=== PATIENT | male | born 1995 | race Caucasian/White ===

== ENCOUNTER 2020-10-13 07:28 | Emergency (ER) | payer OTHER ==
[2020-10-13 07:31] VITALS: BP 124/87; PULSE 103; RESP 18; TEMP 97.5
--- NOTE | 2020-10-13 07:40 | ED ---
General Adult HPI - General Chief complaint: Skin/Abscess/Foreign Body Stated complaint: boil on face Time Seen by Provider: 10/13/20 07:33 Source: patient, RN notes reviewed Mode of arrival: ambulatory Limitations: no limitations - History of Present Illness Initial comments: This a 25-year-old male presents emergency from chief complaint of abscess on his face. Patient states started 5-6 days ago he states that he shaved injury after he states he is at work and fell he has some fiberglass in the skin. Patient denies any history of any skin infections. Patient has appears or chills. Patient states is more swelling today and was over the last for 5 days. - Related Data Previous Rx's Medication Instructions Recorded Cephalexin [Keflex] 500 mg PO Q6HR #40 cap 10/13/20 Sulfamethox-Tmp 800-160Mg [Bactrim 1 each PO Q12HR #20 tab 10/13/20 Ds] Allergies Allergy/AdvReac Type Severity Reaction Status Date / Time No Known Allergies Allergy Verified 10/13/20 07:31 Review of Systems ROS Statement: Those systems with pertinent positive or pertinent negative responses have been documented in the HPI. ROS Other: All systems not noted in ROS Statement are negative. Past Medical History Past Medical History: No Reported History History of Any Multi-Drug Resistant Organisms: None Reported Additional Past Surgical History / Comment(s): left axillae lymph node removal Past Psychological History: No Psychological Hx Reported Smoking Status: Current every day smoker Past Alcohol Use History: Occasional Past Drug Use History: Marijuana, Methamphetamine General Exam Limitations: no limitations General appearance: alert, in no apparent distress Head exam: Present: atraumatic, normocephalic, normal inspection Eye exam: Present: normal appearance, PERRL, EOMI. Absent: scleral icterus, conjunctival injection, periorbital swelling ENT exam: Present: normal oropharynx, mucous membranes moist, TM's normal bilaterally, normal external ear exam, other (Upper right-sided lip there is no firm nonfluctuant a 1 cm abscess mild erythema skin changes) Neck exam: Present: normal inspection, full ROM. Absent: tenderness, meningismus, lymphadenopathy Respiratory exam: Present: normal lung sounds bilaterally. Absent: respiratory distress, wheezes, rales, rhonchi, stridor Cardiovascular Exam: Present: regular rate, normal rhythm, normal heart sounds. Absent: systolic murmur, diastolic murmur, rubs, gallop, clicks Course Vital Signs 10/13/20 07:29 Temperature 97.5 F L Pulse Rate 103 H Respiratory 18 Rate Blood Pressure 124/87 O2 Sat by Pulse 100 Oximetry Medical Decision Making - Medical Decision Making Patient has infected hair follicle versus early abscess patient placed on oral antibiotics warm compresses return parameters were discussed. Disposition Clinical Impression: Facial abscess Disposition: HOME SELF-CARE Condition: Stable Instructions (If sedation given, give patient instructions): Abscess (ED) Additional Instructions: Please return to the Emergency Department if symptoms worsen or any other concerns. Prescriptions: Sulfamethox-Tmp 800-160Mg [Bactrim Ds] 1 each PO Q12HR #20 tab Cephalexin [Keflex] 500 mg PO Q6HR #40 cap Is patient prescribed a controlled substance at d/c from ED?: No Referrals: Param Del Rosario DO [Primary Care Provider] - 1-2 days Time of Disposition: 07:40
== END 2020-10-13 07:50 | disposition home or self-care (01) ==
LOC: EC 07:28
DX: L02.01 Cutaneous abscess of face (principal); F17.200 Nicotine dependence, unspecified, uncomplicated
CPT/HCPCS: 99282

== ENCOUNTER 2022-07-01 10:27 | Emergency (ER) | payer BC, OTHER ==
[2022-07-01 10:33] VITALS: BP 136/81; PULSE 92; RESP 20; TEMP 98
--- NOTE | 2022-07-01 11:12 | ED ---
General Adult HPI - General Chief complaint: Abdominal Pain Stated complaint: Abd Pain Time Seen by Provider: 07/01/22 10:50 Source: patient, RN notes reviewed Mode of arrival: ambulatory Limitations: no limitations - History of Present Illness Initial comments: Patient is a pleasant 26-year-old male presenting to the emergency department with concern with abdominal problems. Symptoms have been present for several weeks. Patient has had some mucus and does question if there could be possibly worms. No nausea or vomiting. Patient does have some abdominal cramping and loose stools. Patient does have some mild abdominal discomfort, lower abdomen. No history of chronic similar symptoms previously. No fever. - Related Data Previous Rx's Medication Instructions Recorded Cephalexin [Keflex] 500 mg PO Q6HR #40 cap 10/13/20 Sulfamethox-Tmp 800-160Mg [Bactrim 1 each PO Q12HR #20 tab 10/13/20 Ds] Dicyclomine [Bentyl] 20 mg PO QID PRN #15 tablet 07/01/22 Allergies Allergy/AdvReac Type Severity Reaction Status Date / Time No Known Allergies Allergy Verified 07/01/22 10:33 Review of Systems ROS Statement: Those systems with pertinent positive or pertinent negative responses have been documented in the HPI. ROS Other: All systems not noted in ROS Statement are negative. Constitutional: Denies: fever Eyes: Denies: eye pain ENT: Denies: ear pain Respiratory: Denies: cough Cardiovascular: Denies: chest pain Endocrine: Denies: fatigue Gastrointestinal: Reports: as per HPI Genitourinary: Denies: dysuria Musculoskeletal: Denies: back pain Skin: Denies: rash Neurological: Denies: weakness Past Medical History Past Medical History: No Reported History History of Any Multi-Drug Resistant Organisms: None Reported Additional Past Surgical History / Comment(s): left axillae lymph node removal Past Psychological History: No Psychological Hx Reported Smoking Status: Current every day smoker Past Alcohol Use History: Occasional Past Drug Use History: Marijuana, Methamphetamine General Exam Limitations: no limitations General appearance: alert, in no apparent distress Head exam: Present: normocephalic Eye exam: Present: normal appearance Neck exam: Present: normal inspection Respiratory exam: Present: normal lung sounds bilaterally Cardiovascular Exam: Present: regular rate, normal rhythm Expanded Peripheral pulses: 2+: Posterior Tibialis (R), Posterior Tibialis (L) GI/Abdominal exam: Present: soft, tenderness (Mild tenderness just under the umbilicus), normal bowel sounds. Absent: distended, guarding, rebound, rigid, pulsatile mass Extremities exam: Present: normal inspection Neurological exam: Present: alert Psychiatric exam: Present: normal affect, normal mood Skin exam: Present: normal color Course Vital Signs 07/01/22 10:31 Temperature 98 F Pulse Rate 92 Respiratory 20 Rate Blood Pressure 136/81 O2 Sat by Pulse 99 Oximetry Medical Decision Making - Medical Decision Making Was pt. sent in by a medical professional or institution (, PA, GIS ANALYST DEVELOPER, urgent care, hospital, or alf...) When possible be specific @ -No Did you speak to anyone other than the patient for history (EMS, parent, family, police, friend...)? What history was obtained from this source @ -No Did you review nursing and triage notes (agree or disagree)? Why? @ -I reviewed and agree with nursing and triage notes Were old charts reviewed (outside hosp., previous admission, EMS record, old EKG, old radiological studies, urgent care reports/EKG's, alf records)? Report findings @ -No old charts were reviewed Differential Diagnosis (chest pain, altered mental status, abdominal pain women, abdominal pain men, vaginal bleeding, weakness, fever, dyspnea, syncope, headache, dizziness, GI bleed, back pain, seizure, CVA, palpatations, mental health)? @ -Differential Abdominal Pain Men: Appendicitis, cholecystitis, diverticulosis, ischemic bowel, pancreatitis, hepatitis, UTI, gastroenteritis, AAA, incarcerated hernia, bowel obstruction, constipation, inflammatory bowel, hepatitis, peptic ulcer disease, splenic infarction, perforated viscus, testicular torsion, this is not meant to be an all-inclusive list EKG interpreted by me (3pts min.). @ -As above X-rays interpreted by me (1pt min.). @ -None done CT interpreted by me (1pt min.). @ -None done U/S interpreted by me (1pt. min.). @ -None done What testing was considered but not performed or refused? (CT, X-rays, U/S, labs)? Why? @ -Consider further testing including stool studies, blood work and imaging. Patient refuses this and does not feel is necessary. Patient is receptive to prescription for stool studies as he cannot provide a sample at this time. Patient does have follow-up appointment pauline scheduled with his primary care physician however this is a couple of weeks away yet. Patient is advised to make sure to have his primary care physician follow-up with stool studies. What meds were considered but not given or refused? Why? @ -None Did you discuss the management of the patient with other professionals (prof perdue i.e. , PA, GIS ANALYST DEVELOPER, lab, RT, psych nurse, executive secretary social welfare, testing and regulating technician, teacher, protection officer, medical case worker)? Give summary @ -No Was smoking cessation discussed for >3mins.? @ -No Was critical care preformed (if so, how long)? @ -No Were there social determinants of health that impacted care today? How? (Homelessness, low income, unemployed, alcoholism, drug addiction, transportation, low edu. Level, literacy, decrease access to med. care, [facility], rehab)? @ -No Was there de-escalation of care discussed even if they declined (Discuss DNR or withdrawal of care, Hospice)? DNR status @ -No What co-morbidities impacted this encounter? (DM, HTN, Smoking, COPD, CAD, Cancer, CVA, ARF, Chemo, Hep., AIDS, mental health diagnosis, sleep apnea, morbid obesity)? @ -None Was patient admitted / discharged? Hospital course, mention meds given and route, prescriptions, significant lab abnormalities, going to OR and other pertinent info. @ -Patient does not want further testing and emergency department. Patient will receive prescription for stool studies and Bentyl as needed. Patient advised to return for worsening symptoms. Patient is agreeable to follow-up in his eyes close follow-up. Undiagnosed new problem with uncertain prognosis? @ -No Drug Therapy requiring intensive monitoring for toxicity (Heparin, Nitro, Insulin, Cardizem)? @ -No Were any procedures done? @ -No Diagnosis/symptom? @ -Abdominal pain Acute, or Chronic, or Acute on Chronic? @ -Acute Uncomplicated (without systemic symptoms) or Complicated (systemic symptoms)? @ -default Side effects of treatment? @ -No Exacerbation, Progression, or Severe Exacerbation? @ -No Poses a threat to life or bodily function? How? (Chest pain, [place], [place], pneumonia, PE, COPD, DKA, ARF, appy, cholecystitis, CVA, Diverticulitis, Homicidal, Suicidal, threat to staff... and all critical care pts) @ -No Disposition Clinical Impression: Abdominal pain Disposition: HOME SELF-CARE Condition: Stable Instructions (If sedation given, give patient instructions): Abdominal Pain (ED) Additional Instructions: Prescription for stool studies provided, please return this in sample container provided to the lab. Please do have your primary care physician follow-up with stool studies. Please do follow-up through primary care physician in the next day or 2 for recheck. Return for fever, increased pain, diarrhea, worsening or changing symptoms or any other concerns. Prescription for medication has been sent to your pharmacy. Prescriptions: Dicyclomine [Bentyl] 20 mg PO QID PRN #15 tablet PRN Reason: Pain Is patient prescribed a controlled substance at d/c from ED?: No Referrals: Param Del Rosario DO [Primary Care Provider] - 1-2 days Time of Disposition: 11:12
== END 2022-07-01 11:26 | disposition home or self-care (01) ==
LOC: EC 10:27
DX: R10.9 Unspecified abdominal pain (principal); F12.90 Cannabis use, unspecified, uncomplicated; F17.200 Nicotine dependence, unspecified, uncomplicated
CPT/HCPCS: 99283

== ENCOUNTER 2024-06-17 09:17 | Emergency (ER) | payer BC, OTHER ==
[2024-06-17 09:22] VITALS: RESP 16; TEMP 98.3
[2024-06-17] MEDS: FLUORESCEIN STRIPS 1 MG STRIP RIGHT EYE ONE (09:50)
[2024-06-17] MEDS: PROPARACAINE 0.5% OPHTH DROPS 15 ML BTL RIGHT EYE STA (09:50)
--- NOTE | 2024-06-17 10:34 | ED ---
Eye Problem HPI - General Source: patient Mode of arrival: ambulatory Limitations: no limitations - History of Present Illness MD chief complaint: eye pain, eye redness, foreign body Onset Description: sudden Location: right eye Place: home If Injury: occurred while hammering/grinding Eye Symptoms: burning, redness, pain, foreign body sensation, itching, decreased vision, photophobia Severity: mild Associated Symptoms: none Treatments Prior to Arrival: none, irrigated eye, OTC eye drops - Related Data Patient Tetanus UTD: No (UNSURE ) <Margot Barraza - Last Filed: 06/17/24 16:25> <Elia Casas - Last Filed: 06/19/24 20:14> - General Chief complaint: Eye Problems Stated complaint: R eye irritation Time Seen by Provider: 06/17/24 09:35 - History of Present Illness Initial comments: 28-year-old presented to the ER with chief complaint of foreign body in his right eye. Patient states he was grinding his truck, reports he was wearing safety goggles, but states he got a few pieces of metal out of his eye but feels as though there is still something lodged in there. Patient is unsure if he is up-to-date on his tetanus shot. (Margot Barraza) - Related Data Previous Rx's Medication Instructions Recorded Cephalexin [Keflex] 500 mg PO Q6HR #40 cap 10/13/20 Sulfamethox-Tmp 800-160Mg [Bactrim 1 each PO Q12HR #20 tab 10/13/20 Ds] Dicyclomine [Bentyl] 20 mg PO QID PRN #15 tablet 07/01/22 Tobramycin 0.3% Ophth Soln [Tobrex 1 drop BOTH EYES Q4H #5 ml 06/17/24 0.3% Ophth Soln] Allergies Allergy/AdvReac Type Severity Reaction Status Date / Time No Known Allergies Allergy Verified 06/17/24 09:22 Review of Systems ROS Other: All systems not noted in ROS Statement are negative. Constitutional: Reports: as per HPI Eyes: Reports: eye pain, vision change <Margot Barraza - Last Filed: 06/17/24 16:25> ROS Other: All systems not noted in ROS Statement are negative. <Elia Casas - Last Filed: 06/19/24 20:14> ROS Statement: Those systems with pertinent positive or pertinent negative responses have been documented in the HPI. Past Medical History Past Medical History: No Reported History History of Any Multi-Drug Resistant Organisms: None Reported Additional Past Surgical History / Comment(s): left axillae lymph node removal Past Psychological History: No Psychological Hx Reported Smoking Status: Current every day smoker, Vaper Past Alcohol Use History: Occasional Past Drug Use History: Marijuana, Methamphetamine <Margot Barraza - Last Filed: 06/17/24 16:25> General Exam Limitations: no limitations General appearance: alert, in no apparent distress Eye exam: Present: conjunctival injection, other (Right eyelid appears swollen and there is redness of the conjunctiva. Small foreign body) <Margot Barraza - Last Filed: 06/17/24 16:25> Course Vital Signs 06/17/24 06/17/24 09:19 10:54 Temperature 98.3 F Pulse Rate 99 89 Respiratory 16 16 Rate Blood Pressure 124/86 117/82 O2 Sat by Pulse 100 99 Oximetry Procedures - Forgein Body Removal Eye Site: Right Anesthetic Used: Proparacaine Eye Exam Technique: No Lamp, Fluorescein Foreign Body Suspected: Metal Forgein Body Removal Technique: Cotton Swab, Needle Remaining Debris: No Patient Tolerated: no complications <Margot Barraza - Last Filed: 06/17/24 16:25> Medical Decision Making <Margot Barraza - Last Filed: 06/17/24 16:25> <Elia Casas - Last Filed: 06/19/24 20:14> - Medical Decision Making Was pt. sent in by a medical professional or institution (, PA, COOK BARBECUE, urgent care, hospital, or skilled nursing...) When possible be specific @ -No Did you speak to anyone other than the patient for history (EMS, parent, family, police, friend...)? What history was obtained from this source @ -No Did you review nursing and triage notes (agree or disagree)? Why? @ -I reviewed and agree with nursing and triage notes Were old charts reviewed (outside hosp., previous admission, EMS record, old EKG, old radiological studies, urgent care reports/EKG's, skilled nursing records)? Report findings @ -No old charts were reviewed Differential Diagnosis? @ -Foreign body removal, conjunctivitis, blepharitis EKG interpreted by me (3pts min.). @ -As above X-rays interpreted by me (1pt min.). @ -None done CT interpreted by me (1pt min.). @ -None done U/S interpreted by me (1pt. min.). @ -None done What testing was considered but not performed or refused? (CT, X-rays, U/S, labs)? Why? @ -None What meds were considered but not given or refused? Why? @ -None Did you discuss the management of the patient with other professionals (professionals i.e. Dr., PA, C[employer]UE, lab, RT, psych nurse, manager social media, sustainable development policy analyst, teacher, legal compliance officer, renal case manager)? Give summary @ -Case was discussed with ED attending Dr. Casas. Was smoking cessation discussed for >3mins.? @ -No Was critical care preformed (if so, how long)? @ -No Were there social determinants of health that impacted care today? How? (Homelessness, low income, unemployed, alcoholism, drug addiction, transportation, low edu. Level, literacy, decrease access to med. care, [facility], rehab)? @ -No Was there de-escalation of care discussed even if they declined (Discuss DNR or withdrawal of care, Hospice)? DNR status @ -No What co-morbidities impacted this encounter? (DM, HTN, Smoking, COPD, CAD, Cancer, CVA, ARF, Chemo, Hep., AIDS, mental health diagnosis, sleep apnea, morbid obesity)? @ -None Was patient admitted / discharged? Hospital course, mention meds given and route, prescriptions, significant lab abnormalities, going to OR and other pertinent info. @ -Foreign body removal was completed in the ER. Patient tolerated well. Patient also received tetanus vaccine. Patient will be discharged home with self-care. Undiagnosed new problem with uncertain prognosis? @ -No Drug Therapy requiring intensive monitoring for toxicity (Heparin, Nitro, Insulin, Cardizem)? @ -No Were any procedures done? @ -No Diagnosis/symptom? @ -Default Acute, or Chronic, or Acute on Chronic? @ -Acute Uncomplicated (without systemic symptoms) or Complicated (systemic symptoms)? @ -Uncomplicated Side effects of treatment? @ -No Exacerbation, Progression, or Severe Exacerbation? @ -No Poses a threat to life or bodily function? How? (Chest pain, [place], [place], pneumonia, PE, COPD, DKA, ARF, appy, cholecystitis, CVA, Diverticulitis, Homicidal, Suicidal, threat to staff... and all critical care pts) @ -No (Margot Barraza) I personally saw the patient and performed the critical portion of the service. I discussed the patient care with the resident. I directed management, care planning and final disposition of the patient. This includes, but not limited to, review of all lab work, radiological studies, EKG's, consultations, vital signs, and nursing notes. EKG interpreted by me (3pts min.) @ [as above] X-Rays interpreted by me (1 pt min.) @ [none] CT interpreted by me ( 1pt min.) @ [none] U/S interpreted by me (1 pt min.) @ [none] Critical care time of [0] minutes excluding separately billable procedures was spent in conjunction with critical care activities provided by the Resident and Attending simultaneously. I was present during foreign body removal for all critical portions of the procedure and as immediately available to furnish service during the entire procedure. (Elia aCsas) Disposition Is patient prescribed a controlled substance at d/c from ED?: No Time of Disposition: 10:30 <Margot Barraza - Last Filed: 06/17/24 16:25> <Elia Casas - Last Filed: 06/19/24 20:14> Clinical Impression: Foreign body of cornea Disposition: HOME SELF-CARE Additional Instructions: Patient will discharge be discharged home with self-care. He is to use TobraDex eyedrops every 4 hours for a few days. Patient is to return to ED if symptoms worsen or persist. Prescriptions: Tobramycin 0.3% Ophth Soln [Tobrex 0.3% Ophth Soln] 1 drop BOTH EYES Q4H #5 ml Referrals: Param Del Rosario, [Primary Care Provider] - 1-2 days
[2024-06-17] MEDS: DIPH,PERTUS(ACELL)TETVAC-LF 0.5 ML VIAL IM ONE (10:49)
[2024-06-17 10:55] VITALS: BP 117/82; PULSE 89
== END 2024-06-17 10:54 | disposition home or self-care (01) ==
LOC: EC 09:17
DX: T15.01XA Foreign body in cornea, right eye, initial encounter (principal); F17.290 Nicotine dependence, other tobacco product, uncomplicated; Z23 Encounter for immunization; W44.9XXA Unspecified foreign body entering into or through a natural orifice, initial encounter
CPT/HCPCS: 65220; 90471; 90715; 99283